=== PATIENT | male | born 1950 | race Caucasian/White ===

== ENCOUNTER 2020-04-08 14:29 | Outpatient (CLI) | payer MEDICARE, SELFPAY ==
--- NOTE | 2020-04-08 14:33 | USCV_ITS ---
Dave Crowder Age: 69 Gender: M : 1950 Exam Date: 04/08/2020 14:58 Ordering Phys: Kelly Rodarte MD ([email or web address]) Technologist: Ilene Alas Exam Location: [facility] [place] Indication: AR BP: / HR: 95 Rhythm: Sinus Technical Quality: Adequate MEASUREMENTS (Male / Female) Normal Values 2D ECHO LV Diastolic Diameter PLAX 5.5 cm 4.2 - 5.9 / 3.9 - 5.3 cm LV Systolic Diameter PLAX 3.4 cm LV Chamber Size 5.1 cm IVS Diastolic Thickness 1.9 cm 0.6 - 1.0 / 0.6 - 0.9 cm IVS Systolic Thickness 2.3 cm LVPW Diastolic Thickness 1.5 cm 0.6 - 1.0 / 0.6 - 0.9 cm LVPW Systolic Thickness 1.9 cm RV Chamber Size 2.8 cm LVOT Diameter 2.0 cm LV Ejection Fraction 2D Teich 69.2 % LV Ejection Fraction MOD 2C 60.0 % LV Ejection Fraction 2C AL 60.9 % LA Diameter 4.3 cm LA Width 3.6 cm LA Height 3.9 cm RA Width 3.0 cm RA Height 4.1 cm Aorta at Sinotubular Diameter 4.2 cm M-MODE LV Diastolic Diameter MM 6.8 cm 4.2 - 5.9 / 3.9 - 5.3 cm LV Systolic Diameter MM 3.8 cm LV Ejection Fraction MM Teich 74.3 % IVS Diastolic Thickness MM 1.2 cm 0.6 - 1.0 / 0.6 - 0.9 cm IVS Systolic Thickness MM 2.0 cm LVPW Diastolic Thickness MM 1.8 cm 0.6 - 1.0 / 0.6 - 0.9 cm LVPW Systolic Thickness MM 2.5 cm RV Diastolic Diameter MM 1.6 cm Aortic Annulus Diameter 4.0 cm LA Ao Ratio MM 1.1 MV E Point Septal Separation 1.7 cm DOPPLER AV Peak Velocity 202.0 cm/s LVOT Peak Velocity 119.0 cm/s AV Area Cont Eq vti 1.7 cm squared AV Area Cont Eq pk 1.9 cm squared MV Area PHT 5.9 cm squared Mitral E to A Ratio 1.5 MV E' Velocity 8.0 cm/s Mitral E to MV E' Ratio 18.3 Mitral E to LV E' Lateral Ratio 16.5 Mitral E to LV E' Septal Ratio 21.0 TR Peak Velocity 152.9 cm/s TR Peak Gradient 9.4 mmHg TR Mean Velocity 104.4 cm/s TR Mean Gradient 4.7 mmHg TR Velocity Time Integral 30.9 cm TV Peak E Velocity 48.0 cm/s Right Atrial Pressure 3.0 mmHg Pulmonary Artery Systolic Pressu 12.4 mmHg PV Peak Velocity 95.0 cm/s RV Acceleration Time 0.2 s RV Ejection Time 0.4 s RV AcT/ET 0.5 FINDINGS Left Ventricle Normal left ventricular cavity size. Moderate concentric left ventricular hypertrophy. Normal left ventricular systolic function. Left ventricular ejection fraction is estimated at 60- 65 %. No regional wall motion abnormalities. Grade II diastolic dysfunction, moderately elevated filling pressures. Right Ventricle Normal right ventricular size and systolic function. Right ventricular systolic pressure 12.4 mmHg. Right Atrium Normal right atrial size. Aneurysmal interatrial septum. No evidence of atrial septal defect or patent foramen ovale based on the study. Left Atrium Mildly increased left atrial size. Mitral Valve Structurally normal mitral valve. No mitral valve stenosis. Trace mitral valve regurgitation. Aortic Valve Mildly thickened trileaflet aortic valve. No aortic valve stenosis. [id number] aortic valve regurgitation. Tricuspid Valve Structurally normal tricuspid valve. No tricuspid valve stenosis. Trace to mild tricuspid valve regurgitation. Pulmonic Valve Pulmonic valve not well visualized. No pulmonary valve stenosis. Mild pulmonary valve regurgitation. Pericardium No pericardial effusion. Prominent epicardial fat. Aorta Normal size aortic root and proximal ascending aorta. CONCLUSIONS 1. Normal left ventricular cavity size. Moderate concentric left ventricular hypertrophy. Normal left ventricular systolic function. Left ventricular ejection fraction is estimated at 60- 65 %. No regional wall motion abnormalities. 2. Normal right ventricular size and systolic function. 3. Aneurysmal interatrial septum. 4. [id number] aortic valve regurgitation. 5. When compared to previous echocardiogram dated 11/04/2018, aortic valve regurgitation seems to have slightly worsened. Kelly Rodarte MD (Electronically Signed) Final Date: 11 Apr 2020 09:51 S
== END 2020-04-08 14:30 | disposition home or self-care (01) ==
PROVIDERS: Family Provider Internal Medicine; PCP Internal Medicine; Visit Provider Internal Medicine Cardiovascular Disease
DX: I35.1 Nonrheumatic aortic (valve) insufficiency (principal); I25.3 Aneurysm of heart
CPT/HCPCS: 93306

== ENCOUNTER → 2020-07-16 08:11 | Outpatient (BNVA) | payer MEDICARE, SELFPAY | PROVIDERS: Family Provider Internal Medicine; PCP Internal Medicine; Referring Provider Specialist; Visit Provider Anesthesiology Pain Medicine | DX: G89.29 Other chronic pain (principal); M47.816 Spondylosis without myelopathy or radiculopathy, lumbar region; M51.36 Other intervertebral disc degeneration, lumbar region; M53.3 Sacrococcygeal disorders, not elsewhere classified; M16.11 Unilateral primary osteoarthritis, right hip; M62.830 Muscle spasm of back; Z79.899 Other long term (current) drug therapy | CPT/HCPCS: 99205 ==

== ENCOUNTER 2020-07-25 11:47 | Outpatient (CLI) | payer MEDICARE, SELFPAY ==
--- NOTE | 2020-07-25 11:45 | MR_ITS ---
WS: [id number] MRI LUMBAR SPINE NONCONTRAST TECHNIQUE: Sagittal T1, T2 and STIR imaging. Axial T1 and T2 imaging. CLINICAL INFORMATION: M47.816 Spondylosis without myelopathy or radiculopathy, ... COMPARISON: None. FINDINGS: Mild lumbar curve. No acute compression. Disc bulging worse L4-5. L1-L2: Normal. L2-L3: Tiny left foraminal protrusion with mild left foraminal narrowing. Spinal canal and right fora men are patent. Mild facet arthropathy. L3-L4: Mild disc bulging with slight effacement of ventral thecal sac. Mild central canal stenosis. S light impingement traversing L4 nerve roots. Mild right greater than left foraminal narrowing. Modera te facet arthropathy. L4-L5: Left subarticular disc protrusion impinges the traversing left L5 nerve root in the subarticul ar recess. Recommend correlation left L5 nerve root symptoms. Mild left and no significant right fora handy narrowing. Moderate facet arthropathy. L5-S1: Mild annular bulging with slight effacement of ventral thecal sac. Mild right and no significa nt left foraminal narrowing. Slight impingement traversing right S1 nerve root. Mild facet arthropath y. Visualized pelvic bony structures: Normal. Paravertebral soft tissues: Normal. MR/MR lumbar spine wo con* [id number] IMPRESSION: 1. Mild lumbar curve. No acute compression. 2. Left L4-L5 subarticular disc protrusion impinges the traversing left L5 ner ve root in the subarticular recess. Recommend correlation for left L5 nerve esther t symptoms. Disc protrusion measures 6 mm. 3. Mild central canal stenosis L3-4 due to disc bulging with facet arthropathy ligament flavum hypertrophy. Impingement traversing L4 nerve roots bilaterally . Mild right foraminal narrowing at this level. 4. Disc bulging L5-S1 with contact of the traversing right greater than left S 1 nerve roots. Mild right foraminal narrowing.
== END 2020-07-25 11:48 | disposition home or self-care (01) ==
LOC: RADSHAW 11:47
PROVIDERS: PCP Internal Medicine; Visit Provider Anesthesiology Pain Medicine
DX: M47.816 Spondylosis without myelopathy or radiculopathy, lumbar region (principal); M51.26 Other intervertebral disc displacement, lumbar region; M48.061 Spinal stenosis, lumbar region without neurogenic claudication; M51.27 Other intervertebral disc displacement, lumbosacral region
CPT/HCPCS: 72148

== ENCOUNTER → 2020-08-13 10:39 | Outpatient (BNVA) | payer MEDICARE, SELFPAY | PROVIDERS: Family Provider Internal Medicine; PCP Internal Medicine; Visit Provider Anesthesiology Pain Medicine | DX: G89.29 Other chronic pain (principal); M51.36 Other intervertebral disc degeneration, lumbar region; M47.816 Spondylosis without myelopathy or radiculopathy, lumbar region; M53.3 Sacrococcygeal disorders, not elsewhere classified; M16.11 Unilateral primary osteoarthritis, right hip; M62.830 Muscle spasm of back | CPT/HCPCS: 99213; 99215 ==

== ENCOUNTER → 2020-11-05 09:51 | Outpatient (BNVA) | payer MEDICARE, SELFPAY | PROVIDERS: Family Provider Internal Medicine; PCP Internal Medicine; Visit Provider Anesthesiology Pain Medicine | DX: G89.29 Other chronic pain (principal); M51.36 Other intervertebral disc degeneration, lumbar region; M47.816 Spondylosis without myelopathy or radiculopathy, lumbar region; M53.3 Sacrococcygeal disorders, not elsewhere classified; M16.11 Unilateral primary osteoarthritis, right hip; M62.830 Muscle spasm of back | CPT/HCPCS: 99213 ==

== ENCOUNTER → 2022-01-29 13:58 | Outpatient (BNVA) | payer MEDICARE, SELFPAY | PROVIDERS: Family Provider Internal Medicine; PCP Internal Medicine; Visit Provider Internal Medicine Cardiovascular Disease | DX: I35.1 Nonrheumatic aortic (valve) insufficiency (principal); I10 Essential (primary) hypertension; I45.2 Bifascicular block | CPT/HCPCS: 99214; 99215 ==

== ENCOUNTER → 2022-04-14 09:43 | Outpatient (BNVA) | payer MEDICARE, SELFPAY | PROVIDERS: Family Provider Internal Medicine; PCP Internal Medicine; Referring Provider Internal Medicine Cardiovascular Disease; Visit Provider Internal Medicine Cardiovascular Disease | DX: Z20.822 Contact with and (suspected) exposure to COVID-19 (principal) | CPT/HCPCS: 99999 ==

== ENCOUNTER 2022-04-17 10:22 | Day surgery (SDC) | payer MEDICARE, SELFPAY ==
[2022-04-14 12:20] LABS: Adenovirus Not Detected (NOT DETECT); Chlamydia Pneumoniae Not Detected (NOT DETECT); Coronavirus 229E,HKU1,NL63,OC4 Not Detected (NOT DETECT); Human Metapneumovirus Not Detected (NOT DETECT); Human Rhinovirus/Enterovirus Not Detected (NOT DETECT); Influenza A Not Detected (NOT DETECT); Influenza A H1 Not Detected (NOT DETECT); Influenza A H1-2009 Not Detected (NOT DETECT); Influenza A H3 Not Detected (NOT DETECT); Influenza B Not Detected (NOT DETECT); Mycoplasma Pneumoniae Not Detected (NOT DETECT); Parainfluenza Virus Type 1 Not Detected (NOT DETECT); Parainfluenza Virus Type 2 Not Detected (NOT DETECT); Parainfluenza Virus Type 3 Not Detected (NOT DETECT); Parainfluenza Virus Type 4 Not Detected (NOT DETECT); Respiratory Syncytial Virus A Not Detected (NOT DETECT); Respiratory Syncytial Virus B Not Detected (NOT DETECT); SARS-COV-2 Not Detected (NOT DETECT)
[2022-04-16 12:42] VITALS: BMI 28.0
[2022-04-17 10:59] VITALS: BP 164/52; PULSE 81; RESP 18; TEMP 36.2; O2SAT 97
--- NOTE | 2022-04-17 11:02 | ANES.PREANE2 ---
Pre-Anesthetic Assessment Height/Weight: Height 1.83 m Weight 93.894 kg Operation Date: 04/17/22 12:00 Proposed Procedures p BCEK /aortic valve regurgit I35.1(Not Applicable) - Kelly Rodarte MD Familial anesthetic complications: none Was Beta Carter taken within 24 hours: N/A Was Clonidine taken within 24 hours: N/A Last intake: > 8hrs Social No alcohol and No tobacco Exam alert, oriented x 3, clear to auscultation bilaterally and regular rate & rhythm Airway Mallampati: Class II Dentition: full Pulmonary None reported CV/HEM Hypertension and Peripheral Vascular Disease CONCLUSIONS ?1. Normal left ventricular cavity size. Moderate concentric left ?ventricular hypertrophy. Normal left ventricular systolic ?function. Left ventricular ejection fraction is estimated at 60-?65 %. No regional wall motion abnormalities. ?2. Normal right ventricular size and systolic function. ?3. Aneurysmal interatrial septum. ?4. [id number]-rr-cbnnag aortic valve regurgitation. ?5. When compared to previous echocardiogram dated 11/04/2018,?aortic valve regurgitation seems to have slightly worsened. ?Kelly Rodarte MD? ?(Electronically Signed) None reported Hepatic None reported GI None reported Metabolic None reported Musc/skel None reported Neuropsych None reported Anesthetic Plan ASA status: 3 Anesthesia: MAC Risk of > 500 ml blood loss (7ml/kg in children): No Medications/Allergies Home Medications Medication Instructions Recorded Confirmed Last Taken Type lisinopril 20 mg tablet 20 mg PO DAILY 01/22/20 04/16/22 Unknown History multivitamin 1 tab PO DAILY 01/22/20 04/16/22 Unknown History psyllium [Metamucil (sugar)] 2.5 g PO PRN 03/25/20 04/16/22 Unknown History lisinopril 20 1 tab PO DAILY #0 tab 12/02/21 04/16/22 Unknown Rx mg-hydrochlorothiazide 12.5 mg tablet Allergies Allergy/AdvReac Type Severity Reaction Status Date / Time No Known Allergies Allergy Verified 04/16/22 12:39 ON LICENSE OF [facility] Anesthesia Medical History Aortic incompetence Atherosclerotic peripheral vascular disease Bifascicular block HTN (hypertension) Family History Other Lymphoma Social History Smoking and tobacco status: former smoker Second hand smoke exposure: No Alcohol intake: never Lives independently: Yes service: Yes History of recent travel: No Current gender identity: Male Data Anesthesia Cardiac Studies: Echocardiogram Ultrasound 04/08/20
[2022-04-17] MEDS: sodium chloride 0.9% 1,000 ML 30 ML IV (11:28)
--- NOTE | 2022-04-17 11:41 | USCV_ITS ---
Dave Crowder Age: 71 Gender: M : 1950 Exam Date: 04/17/2022 11:43 Ordering Phys: Kelly Rodarte MD ([email or web address]) Technologist: Michelle Jaimes Exam Location: [facility] [place] Indication: Aortic incompetence BP: 137 / 50 HR: 77 Rhythm: Sinus Technical Quality: Adequate MEASUREMENTS (Male / Female) Normal Values 2D ECHO LVOT Diameter 2.1 cm DOPPLER AV Peak Velocity 178.0 cm/s LVOT Peak Velocity 174.0 cm/s AV Area Cont Eq vti 4.0 cm squared AV Area Cont Eq pk 3.5 cm squared MV Peak Velocity 256.0 cm/s MV Area PHT 3.7 cm squared Mitral E to A Ratio 1.4 MV E' Velocity 131.0 cm/s Medications Patient given IV sedation by anesthesia service, for details please refer to the anesthesia report. Complications Intubation easy. Attempts x 1. No blood on probe post procedure. Patient tolerated procedure well. Proc. Components The patient was brought to the BECK examination room in a fasting state after obtaining an informed consent. The BECK probe was passed into the posterior pharynx , mid-esophagus, distal esophagus, and gastric fundus. FINDINGS Left Ventricle Normal left ventricular size, systolic function with no regional wall motion abnormalities. Left ventricular ejection fraction is estimated at 65 %. Right Ventricle Normal right ventricular size and systolic function. Right Atrium Normal right atrial size. Left Atrium Normal left atrial size. LA Appendage Normal left atrial appendage. Normal flow velocities in the left atrial appendage. No thrombus visualized in the left atrial appendage. IA Septum Normal interatrial septum. No patent foramen ovale or atrial septal defect. Interatrial septal aneurysm. Mitral Valve Structurally normal mitral valve. No mitral valve stenosis. Trace mitral valve regurgitation. Aortic Valve Mildly thickened trileaflet aortic valve. No aortic valve stenosis. Moderate to severe eccentric aortic valve regurgitation. Tricuspid Valve Structurally normal tricuspid valve. No tricuspid valve stenosis. Trace tricuspid valve regurgitation. Pulmonic Valve Structurally normal pulmonic valve. No pulmonary valve stenosis. Trace pulmonary valve regurgitation. Pericardium No pericardial effusion. Aorta Normal size aortic root and proximal ascending aorta. No aortic dilation, aneurysm or dissection. Grade 2 atheroma in descending aorta. CONCLUSIONS 1. Normal left ventricular size, systolic function with no regional wall motion abnormalities. Left ventricular ejection fraction is estimated at 65 %. 2. Moderate to severe eccentric aortic valve regurgitation. 3. Interatrial septal aneurysm. Kelyl Rodarte MD (Electronically Signed) Final Date: 02 May 2022 18:41 S
--- NOTE | 2022-04-17 11:52 | P.HP_ITS ---
Same Day Surgery H&P Indication for Procedure/HPI DATE OF PROCEDURE: April 17, 2022 CHIEF COMPLAINT/INDICATIONFOR SURGICAL PROCEDURE: Moderate to severe Aortic regurgitation PREOP DIAGNOSIS: Moderate to severe Aortic regurgitation PLANNED PROCEDURE: Operation Date: 04/17/22 12:00 Proposed Procedures p BECK /aortic valve regurgit I35.1(Not Applicable) - Kelly Rodarte MD 71 yo man with PMHx of HTN, moderate to severe AI on TTE presented for outpatient BECK. Medications/Allergies* Home Medications Medication Instructions Recorded Confirmed Type lisinopril 20 mg tablet 20 mg PO DAILY 01/22/20 04/16/22 History multivitamin 1 tab PO DAILY 01/22/20 04/16/22 History psyllium [Metamucil (sugar)] 2.5 g PO PRN 03/25/20 04/16/22 History Allergies/Adverse Reactions Allergy/AdvReac Type Severity Reaction Status Date / Time No Known Allergies Allergy Verified 04/16/22 12:39 Current Medications: Generic Name Dose Route Start Last Admin Trade Name Freq PRN Reason Stop Dose Admin Sodium Chloride 1,000 mls @ 30 mls/hr 04/17/22 10:45 04/17/22 11:28 Sodium Chloride 0.9% IV 04/18/22 10:44 30 mls/hr .Q24H [id number] Administration Pertinent History/Comorbid Conditions* Medical History (Updated 07/16/20 @ 09:32 by Maxx Quiles MD) Aortic incompetence Atherosclerotic peripheral vascular disease Bifascicular block HTN (hypertension) Family History (Updated 01/22/20 @ 14:20 by Yun Burden, [email or web address]) Lymphoma Social History Smoking and tobacco status: former smoker Second hand smoke exposure: No Alcohol intake: never Lives independently: Yes service: Yes History of recent travel: No Current gender identity: Male Pertinent Exam Findings alert, oriented x 3, clear to auscultation bilaterally, regular rate & rhythm and procedure specific exam findings Recommendations Surgery/Procedure today Coding Level of Care Code Acute Juvenile Detention Officer for Mark Anthony Pozo
[2022-04-17 13:43] VITALS: BP 117/40; PULSE 75; RESP 18; TEMP 36.2; O2SAT 97
[2022-04-17 13:48] VITALS: BP 117/43; PULSE 70; RESP 18; O2SAT 96
[2022-04-17 14:00] VITALS: BP 125/45; PULSE 72; RESP 18; TEMP 36.1; O2SAT 94
--- NOTE | 2022-04-17 14:30 | ANE.PACU2 ---
Inpatient post-anesthesia follow up: Airway intact: Yes Vital signs: Temperature 97.0 F Pulse Rate 72 Respiratory Rate 18 Blood Pressure 125/45 Pulse Oximetry 94 Oxygen Delivery Me thod Room Air Oxygen Flow Rate Fraction of Inspir ed Oxygen Hydration adequate: Yes Nausea and vomiting: No Pain level: 1 Mental status: Baseline
== END 2022-04-17 14:10 | disposition home or self-care (01) ==
PROVIDERS: PCP Internal Medicine; Visit Provider Internal Medicine Cardiovascular Disease
PROC: (CPT 93312; principal; 2022-04-17 12:00)
DX: I35.1 Nonrheumatic aortic (valve) insufficiency (principal); I45.2 Bifascicular block; I10 Essential (primary) hypertension; Z87.891 Personal history of nicotine dependence
CPT/HCPCS: 87635; 93312; 93320; 93325; J2704; J7030

== ENCOUNTER → 2022-07-30 13:57 | Outpatient (BNVA) | payer MEDICARE, SELFPAY | PROVIDERS: PCP Internal Medicine; Visit Provider Internal Medicine Cardiovascular Disease | DX: I35.1 Nonrheumatic aortic (valve) insufficiency (principal); R06.02 Shortness of breath; I10 Essential (primary) hypertension; I45.2 Bifascicular block; M51.36 Other intervertebral disc degeneration, lumbar region; Z87.891 Personal history of nicotine dependence | CPT/HCPCS: 99214 ==

== ENCOUNTER 2022-11-17 12:11 | Outpatient (CLI) | payer MEDICARE, SELFPAY ==
--- NOTE | 2022-11-17 12:45 | USCV_ITS ---
Dave Crowder Age: 72 Gender: M : 1950 Exam Date: 11/17/2022 12:26 Ordering Phys: Kelly Rodarte MD ([email or web address]) Technologist: Lane Quiles Exam Location: [facility] – [place] Indication: Aortic valve regurgitation BP: 158 / 44 HR: 70 Rhythm: Sinus Technical Quality: Adequate MEASUREMENTS (Male / Female) Normal Values 2D ECHO LV Diastolic Diameter PLAX 7.0 cm 4.2 - 5.9 / 3.9 - 5.3 cm LV Systolic Diameter PLAX 4.7 cm IVS Diastolic Thickness 1.4 cm 0.6 - 1.0 / 0.6 - 0.9 cm IVS Systolic Thickness 1.7 cm LVPW Diastolic Thickness 1.4 cm 0.6 - 1.0 / 0.6 - 0.9 cm LVPW Systolic Thickness 2.5 cm LVOT Diameter 2.1 cm LV Ejection Fraction 2D Teich 59.9 % LV Ejection Fraction MOD 2C 73.7 % LV Ejection Fraction 2C AL 74.5 % LA Diameter 4.1 cm LA Width 4.2 cm LA Height 6.3 cm RA Width 3.9 cm RA Height 5.0 cm Aorta at Sinotubular Diameter 3.2 cm IVC Diameter 2.0 cm M-MODE Aortic Annulus Diameter 4.1 cm LA Ao Ratio MM 1.0 MV E Point Septal Separation 1.3 cm DOPPLER AV Peak Velocity 241.7 cm/s LVOT Peak Velocity 132.0 cm/s AV Area Cont Eq vti 1.9 cm squared AV Area Cont Eq pk 1.9 cm squared MV Area PHT 4.8 cm squared Mitral E to A Ratio 0.6 MV E' Velocity 33.2 cm/s Mitral E to MV E' Ratio 5.6 Mitral E to LV E' Lateral Ratio 5.3 Mitral E to LV E' Septal Ratio 6.0 TR Peak Velocity 273.6 cm/s TR Peak Gradient 29.9 mmHg TR Mean Velocity 224.4 cm/s TR Mean Gradient 21.2 mmHg TR Velocity Time Integral 71.6 cm Right Atrial Pressure 3.0 mmHg Pulmonary Artery Systolic Pressu 33.0 mmHg PV Peak Velocity 129.0 cm/s RV Acceleration Time 0.1 s RV Ejection Time 0.3 s RV AcT/ET 0.5 FINDINGS Left Ventricle Normal left ventricular size, systolic function and moderately increased wall thickness, with no regional wall motion abnormalities. Moderate concentric left ventricular hypertrophy. Left ventricular ejection fraction is estimated at 70 %. Grade I diastolic dysfunction (abnormal relaxation filling pattern), normal to mildly elevated filling pressures. Right Ventricle Normal right ventricular size and systolic function. Right ventricular systolic pressure 29 mmHg. Right Atrium Normal right atrial size. Left Atrium Mildly increased left atrial size. Mitral Valve Structurally normal mitral valve. No mitral valve stenosis. Trace mitral valve regurgitation. Aortic Valve Structurally normal trileaflet aortic valve. No aortic valve stenosis. Severe aortic valve regurgitation(VC=0.67 cm). Tricuspid Valve Structurally normal tricuspid valve. No tricuspid valve stenosis. Mild tricuspid valve regurgitation. Pulmonic Valve Structurally normal pulmonic valve. No pulmonary valve stenosis. Mild pulmonary valve regurgitation. Pericardium No pericardial effusion. Aorta Normal size aortic root and mildly dilated ascending aorta measured at 36 mm. IVC Normal IVC dimension with >50% respiratory change of the inferior vena cava. CONCLUSIONS 1. Normal left ventricular size, systolic function and moderately increased wall thickness, with no regional wall motion abnormalities. Moderate concentric left ventricular hypertrophy. Left ventricular ejection fraction is estimated at 70 %. Grade I diastolic dysfunction (abnormal relaxation filling pattern), normal to mildly elevated filling pressures. 2. Possibly severe aortic valve regurgitation(VC=0.67 cm). 3. Mild tricuspid valve regurgitation. 4. Pulmonary artery pressure was estimated at 29 mm Hg. 5. When compared to study dated 04/17/22, aortic regurgitation seems to have worsened. Kelly Rodarte MD (Electronically Signed) Final Date: 28 November 2022 14:48 S
== END 2022-11-17 12:12 | disposition home or self-care (01) ==
LOC: RAD 12:12
PROVIDERS: PCP Internal Medicine; Visit Provider Internal Medicine Cardiovascular Disease
DX: I35.1 Nonrheumatic aortic (valve) insufficiency (principal); R06.02 Shortness of breath; I07.1 Rheumatic tricuspid insufficiency
CPT/HCPCS: 93306